=== PATIENT | male | born 1950 | race African-American/Black ===

== ENCOUNTER 2019-06-23 23:45 | Inpatient (IN) | payer MEDICARE, MEDICAID ==
[~2019-06-23] VITALS: Ht 177.8 cm; Wt 90.9 kg
[2019-06-24 00:09] LABS: GLUCOSE,POINT OF CARE 98 MG/DL (70-110)
[2019-06-24 00:25] LABS: BASOPHILS % (AUTO) 0.4 % (0.0-2.0); EOSINOPHILS % (AUTO) 0.3 % (1.0-6.0); HEMATOCRIT 46.5 % (41-53); HEMOGLOBIN 15.1 g/dL (13.5-17.5); LYMPHOCYTES # (AUTO) 2.3 K/uL (1.0-4.8); LYMPHOCYTES % (AUTO) 15.5 % (22.0-44.0); MEAN CORPUSCULAR HEMOGLOBIN 30.3 pg (26.0-34.0); MEAN CORPUSCULAR HGB CONC 32.4 G/dL (31.0-37.0); MEAN CORPUSCULAR VOLUME 94 fL (80-100); MONOCYTES # (AUTO) 1.7 K/uL (0.1-1.0); MONOCYTES % (AUTO) 11.4 % (2.0-9.0); NEUTROPHILS # (AUTO) 10.9 K/uL (1.8-7.7); NEUTROPHILS % (AUTO) 72.4 % (40.0-70.0); PLATELET COUNT (AUTO) 289 K/uL (150-450); RED BLOOD CELL COUNT(AUTO) 4.97 MIL/uL (4.50-5.90); RED CELL DISTRIBUTION WIDTH 14.2 % (11.5-14.5)
[2019-06-24 00:36] LABS: ANION GAP 8 mmol/L (8-16); CALCIUM, TOTAL 9.4 mg/dL (8.8-10.5); CARBON DIOXIDE 32 mmol/L (22-29); CHLORIDE 94 mmol/L (98-107); CREATININE 11.25 mg/dL (0.60-1.30); GLOMERULAR FILTR. RATE CALC 6 mL/min (>60); GLUCOSE,RANDOM 103 mg/dL (70-110); POTASSIUM 3.8 mmol/L (3.5-5.1); SODIUM SERUM 134 mmol/L (136-145); UREA NITROGEN, BLOOD 34 mg/dL (7-18)
[2019-06-24 00:42] LABS: ALANINE AMINOTRANSFERASE 16 U/L (12-78); ALBUMIN 4.2 g/dL (3.4-5.0); ALKALINE PHOSPHATASE 93 U/L (46-116); ASPARTATE AMINOTRANSFERASE 21 U/L (15-37); BILIRUBIN,TOTAL 0.5 mg/dL (0.1-1.0); TOTAL PROTEIN, SERUM 8.6 g/dL (6.4-8.2)
[2019-06-24] MEDS ORDERED: ZOLPIDEM TARTRATE 10 MG TABLET PO PRN (02:15)
[2019-06-24] MEDS ORDERED: HALOPERIDOL 5 MG TABLET PO PRN (02:15)
[2019-06-24] MEDS ORDERED: LORazepam 2 MG TABLET PO ONE (03:00)
[2019-06-24] MEDS ORDERED: ACETAMINOPHEN 500 MG TABLET PO ONE (03:00)
[2019-06-24 05:16] VITALS: BP 153/87
[2019-06-24] MEDS: LORazepam 2 MG TABLET PO PRN ×2 (08:46→21:04)
[2019-06-24 09:23] VITALS: BP 128/72
[2019-06-24] MEDS: ESCITALOPRAM OXALATE 10 MG TABLET PO SCH (10:45)
[2019-06-24] MEDS ORDERED: DOXERCALCIFEROL 4 MCG/2 ML VIAL IVP SCH (14:00)
[2019-06-24] MEDS: VITAMIN B COMP/VIT C/FOLIC ACID CAPSULE PO SCH (15:35)
[2019-06-24] MEDS: LinaGLIPtin 5 MG TABLET PO SCH (15:35)
[2019-06-24] MEDS: INSULIN LISPRO 100 UNITS/ML SQ SCH (16:16)
[2019-06-24] MEDS ORDERED: DiphenhydrAMINE HCL 50 MG/ML VIAL IM ONE (17:42)
[2019-06-24 19:43] VITALS: BP 130/74
[2019-06-24] MEDS: SEVELAMER CARBONATE 800 MG TABLET PO SCH (20:41)
[2019-06-24] MEDS: SIMVASTATIN 40 MG TABLET PO SCH (20:42)
[2019-06-24] MEDS: RisperiDONE 1 MG TABLET PO SCH (20:42)
[2019-06-25 06:35] LABS: CHOL/HDL RATIO 2.3 (4.2-7.3)
[2019-06-25] MEDS: INSULIN LISPRO 100 UNITS/ML SQ SCH (06:43)
[2019-06-25] MEDS: PANTOPRAZOLE SODIUM 40 MG DR TABLET PO SCH (06:44)
[2019-06-25] MEDS: SEVELAMER CARBONATE 800 MG TABLET PO SCH ×3 (06:44→16:28)
[2019-06-25 06:52] LABS: GLUCOMETER DEV NAME(LOC) 3EX.; GLUCOSE,POINT OF CARE 56 MG/DL (70-110)
[2019-06-25 07:15] LABS: GLUCOMETER DEV NAME(LOC) 3EX.; GLUCOSE,POINT OF CARE 99 MG/DL (70-110)
[2019-06-25] MEDS: LinaGLIPtin 5 MG TABLET PO SCH (08:37)
[2019-06-25] MEDS: ESCITALOPRAM OXALATE 10 MG TABLET PO SCH (08:37)
[2019-06-25] MEDS: AmLODIPine BESYLATE 10 MG TABLET PO SCH (08:37)
[2019-06-25] MEDS: VITAMIN B COMP/VIT C/FOLIC ACID CAPSULE PO SCH (08:37)
[2019-06-25] MEDS: LOSARTAN POTASSIUM 50 MG TABLET PO SCH (08:38)
[2019-06-25] MEDS ORDERED: VITAMIN B COMP/VIT C/FOLIC ACID CAPSULE PO SCH (09:00)
[2019-06-25] MEDS ORDERED: GLUCAGON,HUMAN RECOMBINANT 1 MG VIAL IM PRN (09:30)
[2019-06-25 12:30] LABS: GLUCOMETER DEV NAME(LOC) 3EX.; GLUCOSE,POINT OF CARE 78 MG/DL (70-110)
[2019-06-25 16:30] VITALS: BP 132/80
[2019-06-25] MEDS ORDERED: ACETAMINOPHEN 650 MG/20.3 ML SOLUTION UDCUP PO PRN (18:15)
[2019-06-25] MEDS ORDERED: DOXERCALCIFEROL 4 MCG/2 ML VIAL IVP PRN (18:15)
[2019-06-25 18:16] VITALS: BP 132/76
[2019-06-25] MEDS: ACETAMINOPHEN 325 MG TABLET PO PRN (18:17)
[2019-06-25 19:18] VITALS: BP 128/70
[2019-06-25] MEDS: SIMVASTATIN 40 MG TABLET PO SCH (20:10)
[2019-06-25] MEDS: RisperiDONE 1 MG TABLET PO SCH (20:10)
[2019-06-26 05:49] VITALS: BP 112/53
[2019-06-26 06:07] LABS: GLUCOMETER DEV NAME(LOC) 3E.C; GLUCOSE,POINT OF CARE 95 MG/DL (70-110)
[2019-06-26] MEDS: PANTOPRAZOLE SODIUM 40 MG DR TABLET PO SCH (06:57)
[2019-06-26] MEDS: SEVELAMER CARBONATE 800 MG TABLET PO SCH ×3 (06:57→16:30)
[2019-06-26] MEDS: INSULIN LISPRO 100 UNITS/ML SQ PRN ×2 (06:58→11:43)
[2019-06-26 08:00] VITALS: BP 134/70
[2019-06-26] MEDS: VITAMIN B COMP/VIT C/FOLIC ACID CAPSULE PO SCH (10:05)
[2019-06-26] MEDS: AmLODIPine BESYLATE 10 MG TABLET PO SCH (10:05)
[2019-06-26] MEDS: ESCITALOPRAM OXALATE 10 MG TABLET PO SCH (10:05)
[2019-06-26] MEDS: LOSARTAN POTASSIUM 50 MG TABLET PO SCH (10:05)
[2019-06-26 10:48] LABS: GLUCOMETER DEV NAME(LOC) 3EX.; GLUCOSE,POINT OF CARE 85 MG/DL (70-110)
[2019-06-26 10:49] LABS: GLUCOMETER DEV NAME(LOC) 3EX.; GLUCOSE,POINT OF CARE 77 MG/DL (70-110)
[2019-06-26 11:38] LABS: GLUCOMETER DEV NAME(LOC) 3EX.; GLUCOSE,POINT OF CARE 91 MG/DL (70-110)
[2019-06-26] MEDS ORDERED: DiphenhydrAMINE HCL 50 MG/ML VIAL IVP ONE (14:56)
[2019-06-26 16:49] LABS: GLUCOMETER DEV NAME(LOC) 3EX.; GLUCOSE,POINT OF CARE 99 MG/DL (70-110)
[2019-06-26] MEDS: -POST HEMODIALYSIS NOTE- MISC SCH (21:48)
[2019-06-26 22:00] VITALS: BP 126/70
[2019-06-26] MEDS: RisperiDONE 1 MG TABLET PO SCH (22:06)
[2019-06-26] MEDS: ACETAMINOPHEN 325 MG TABLET PO PRN (22:06)
[2019-06-26] MEDS: SIMVASTATIN 40 MG TABLET PO SCH (22:07)
[2019-06-26 22:12] LABS: GLUCOMETER DEV NAME(LOC) 3EX.; GLUCOSE,POINT OF CARE 111 MG/DL (70-110)
[2019-06-27 00:45] VITALS: BP 121/61
[2019-06-27 05:30] LABS: GLUCOMETER DEV NAME(LOC) 3EX.; GLUCOSE,POINT OF CARE 83 MG/DL (70-110)
[2019-06-27] MEDS: PANTOPRAZOLE SODIUM 40 MG DR TABLET PO SCH (06:50)
[2019-06-27] MEDS: SEVELAMER CARBONATE 800 MG TABLET PO SCH ×2 (06:51→13:05)
[2019-06-27] MEDS: INSULIN LISPRO 100 UNITS/ML SQ PRN ×2 (07:00→17:08)
[2019-06-27] MEDS: -POST HEMODIALYSIS NOTE- MISC SCH (09:00)
[2019-06-27] MEDS: LOSARTAN POTASSIUM 50 MG TABLET PO SCH (09:11)
[2019-06-27] MEDS: ESCITALOPRAM OXALATE 10 MG TABLET PO SCH (09:11)
[2019-06-27] MEDS: VITAMIN B COMP/VIT C/FOLIC ACID CAPSULE PO SCH (09:12)
[2019-06-27] MEDS: AmLODIPine BESYLATE 10 MG TABLET PO SCH (09:12)
[2019-06-27 09:53] VITALS: BP 115/70
[2019-06-27 11:17] LABS: GLUCOMETER DEV NAME(LOC) 3EX.; GLUCOSE,POINT OF CARE 120 MG/DL (70-110)
[2019-06-27] MEDS ORDERED: ESCI10TA54 PO (12:10)
[2019-06-27] MEDS ORDERED: RISP1 PO (12:10)
[2019-06-27] MEDS ORDERED: AMLO10TA7 PO (12:51)
[2019-06-27] MEDS ORDERED: LOSA50TA64 PO (12:55)
[2019-06-27] MEDS ORDERED: PANT40TA25 PO (12:56)
[2019-06-27] MEDS ORDERED: SIMV-261 PO (12:57)
[2019-06-27] MEDS ORDERED: SEVE800T17 PO (12:57)
[2019-06-27] MEDS ORDERED: B CO1CAP6 PO (12:58)
[2019-06-27 17:03] LABS: GLUCOMETER DEV NAME(LOC) 3EX.; GLUCOSE,POINT OF CARE 107 MG/DL (70-110)
[2019-06-27 17:14] VITALS: BP 100/64
== END 2019-06-27 15:15 | disposition home or self-care (01) | DRG 885 ==
LOC: EMS 23:45 → 3EI 06-24 02:30
PROC: 5A1D70Z Performance of Urinary Filtration, Intermittent, Less than 6 Hours Per Day (ICD-10-PCS; principal; 2019-06-24)
PROC: 5A1D70Z Performance of Urinary Filtration, Intermittent, Less than 6 Hours Per Day (ICD-10-PCS; 2019-06-26)
DX: F29 Unspecified psychosis not due to a substance or known physiological condition (principal); N18.6 End stage renal disease; G93.40 Encephalopathy, unspecified; I12.0 Hypertensive chronic kidney disease with stage 5 chronic kidney disease or end stage renal disease; F20.9 Schizophrenia, unspecified; E78.5 Hyperlipidemia, unspecified; E11.22 Type 2 diabetes mellitus with diabetic chronic kidney disease; K21.9 Gastro-esophageal reflux disease without esophagitis; F12.10 Cannabis abuse, uncomplicated; E11.649 Type 2 diabetes mellitus with hypoglycemia without coma; D72.829 Elevated white blood cell count, unspecified; Z79.899 Other long term (current) drug therapy; Z82.49 Family history of ischemic heart disease and other diseases of the circulatory system; Z83.3 Family history of diabetes mellitus; Z99.2 Dependence on renal dialysis
CPT/HCPCS: 70450; 83036; 87040; 87081; 93005; G0480; J1200; J1815

== ENCOUNTER 2022-09-21 18:42 | Emergency (ER) | payer MEDICARE, MEDICAID ==
[~2022-09-21] VITALS: Ht 175.3 cm; Wt 88.0 kg
[~2022-09-21 18:42] MED LIST: AMLO-258 PO; B CO1CAP6 PO; ESCI10 PO; LOSA-382 PO; PANT-31 PO; RISP1TAB48 PO; SEVE800T17 PO; SIMV-261 PO
[2022-09-21] MEDS ORDERED: LIDOCAINE 1% 10 ML VIAL SQ ONE (20:30)
[2022-09-21] MEDS ORDERED: LIDOCAINE 1% 10 ML VIAL ONE (20:32)
[2022-09-21] MEDS ORDERED: ACET-66 PO (20:41)
[2022-09-21] MEDS ORDERED: CEPH-558 PO (20:41)
[2022-09-21 20:53] VITALS: BP 123/64
== END 2022-09-21 21:00 | disposition home or self-care (01) ==
LOC: EMS 20:29
DX: L03.032 Cellulitis of left toe (principal); E11.22 Type 2 diabetes mellitus with diabetic chronic kidney disease; I12.0 Hypertensive chronic kidney disease with stage 5 chronic kidney disease or end stage renal disease; F17.210 Nicotine dependence, cigarettes, uncomplicated; F12.90 Cannabis use, unspecified, uncomplicated; Z99.2 Dependence on renal dialysis
CPT/HCPCS: 99284; 10160; 82962; J3490